=== PATIENT | male | born 1995 | race Caucasian/White ===

== ENCOUNTER 2018-02-21 01:49 | Emergency (ER) | payer OTHER ==
[2018-02-21] MEDS: KETOROLAC 60 MG INJ IM (02:35)
== END 2018-02-21 03:04 | disposition home or self-care (01) ==
LOC: FTE 01:49
DX: R51 Headache (principal); R40.2142 Coma scale, eyes open, spontaneous, at arrival to emergency department; R40.2252 Coma scale, best verbal response, oriented, at arrival to emergency department; R40.2362 Coma scale, best motor response, obeys commands, at arrival to emergency department
CPT/HCPCS: 96372; 99284-25